=== PATIENT | male | born 1965 | race Caucasian/White ===

== ENCOUNTER 2017-07-24 13:02 | Emergency (ER) | payer SELFPAY ==
[2017-07-24 13:36] VITALS: BP 137/77
--- NOTE | 2017-07-24 14:25 | UC ---
Lower Extremity/Ankle HPI - HPI Summary HPI Summary: Pt reports slipping on ice and hitting left great toe and medial aspect of foot on curb. c/o pain and tenderness distal first meta tarsal and left big toe. - History of Current Complaint Chief Complaint: UCLowerExtremity Stated Complaint: WC - LEFT FOOT BIG TOE INJ Time Seen by Provider: 07/24/17 13:45 Hx Obtained From: Patient Onset/Duration: Sudden Onset Severity Initially: Moderate Severity Currently: Mild Pain Intensity: 8 Aggravating Factor(s): Standing, Ambulation Alleviating Factor(s): Rest, Elevation Able to Bear Weight: Yes - minimal Related History: Occupational Injury - Risk Factors Gout Risk Factors: Age Over 40, Male DVT Risk Factors: Smoking - Allergies/Home Medications Allergies/Adverse Reactions: Allergies Allergy/AdvReac Type Severity Reaction Status Date / Time No Known Allergies Allergy Verified 05/21/12 05:17 PMH/Surg Hx/FS Hx/Imm Hx Previously Healthy: Yes Cardiovascular History: Cardiac Disease - Surgical History Surgical History: Yes Surgery Procedure, Year, and Place: stents - Family History Known Family History: Positive: Cardiac Disease - Social History Occupation: Employed Full-time Lives: With Family Alcohol Use: Rare Substance Use Type: Excessive Caffeine Smoking Status (MU): Light Every Day Tobacco Smoker Type: Cigars, Smokeless Tobacco Have You Smoked in the Last Year: Yes - cigars Review of Systems Constitutional: Negative Skin: Bruising - left great toe Eyes: Negative ENT: Negative Respiratory: Negative Cardiovascular: Negative Gastrointestinal: Negative Genitourinary: Negative Motor: Decreased ROM - left great toe Neurovascular: Negative Musculoskeletal: Arthralgia, Decreased ROM - left great toe, Myalgia Neurological: Negative Psychological: Negative Is Patient Immunocompromised?: No All Other Systems Reviewed And Are Negative: Yes Physical Exam Triage Information Reviewed: Yes Appearance: Well-Appearing Vital Signs: Initial Vital Signs Temp 98.7 F 07/24/17 13:32 Pulse 65 07/24/17 13:32 Resp 18 07/24/17 13:32 BP 137/77 07/24/17 13:32 Pulse Ox 95 07/24/17 13:32 Vital Signs Reviewed: Yes Eye Exam: Normal ENT Exam: Normal Respiratory: Positive: No respiratory distress Musculoskeletal Exam: Other Musculoskeletal: Positive: Strength Limited @ - left great toe, ROM Limited @ - left great toe Neurological Exam: Normal Psychological Exam: Normal Skin Exam: Normal Diagnostics - Radiology No standard instances Radiology Interpretation Completed By: Radiologist - IMPRESSION: Negative radiographic exam of the LEFT foot. Lower Extremity Course/Dx - Differential Dx/Diagnosis Differential Diagnosis/HQI/PQRI: Contusion, Fracture (Closed) Provider Diagnoses: contusion left foot and great toe Discharge - Discharge Plan Condition: Stable Disposition: HOME Patient Education Materials: Foot Contusion (ED) Referrals: [facility] [place] [facility] [Outside] Panfilo Patel MD [Medical Doctor] - If Needed No Primary Care Phys,NOPCP [Primary Care Provider] -
--- NOTE | 2017-07-24 14:48 | RAD ---
Indication: Dorsal LEFT foot pain near the first metatarsal phalangeal joint. Comparison: No relevant prior exams available on the [facility] for comparison. Technique: AP, lateral, and oblique views LEFT foot. Report: Normal variant bipartite sesamoid at the medial head of the flexor hallucis brevis. Normal articular alignment and preserved joint spaces without significant arthropathic change. Negative for fracture or radiographic stigmata of stress reaction. Unremarkable soft tissue contours. IMPRESSION: Negative radiographic exam of the LEFT foot.
== END 2017-07-24 15:06 | disposition home or self-care (01) ==
LOC: UCCORT 13:02
DX: S90.32XA Contusion of left foot, initial encounter (principal); S90.112A Contusion of left great toe without damage to nail, initial encounter; W00.2XXA Other fall from one level to another due to ice and snow, initial encounter; Y93.9 Activity, unspecified; Y92.9 Unspecified place or not applicable; F17.210 Nicotine dependence, cigarettes, uncomplicated
CPT/HCPCS: 99202; G0463

== ENCOUNTER 2023-09-07 13:17 | Observation (INO) ==
[2023-09-07] MEDS: Heparin DRIP 25,000 UNITS BAG 25,000 UNITS/250 ML BAG IV SCH (14:00)
[2023-09-07 14:42] LABS: Activated Partial Thrombo Time 108.9 seconds (26.0-38.0)
[2023-09-07 15:13] LABS: Creatinine, Serum 0.74 mg/dL (0.67-1.17); eGFR CKD-EPI 104.4 (>60)
[2023-09-07 15:23] LABS: High Sensitivity Troponin 1 Hr 5 pg/mL (<20)
[2023-09-07 15:49] LABS: ABS Basophils 0.1 10^3/uL (0.0-0.1); ABS Eosinophils 0.2 10^3/uL (0.0-0.5); ABS Lymphocytes 3.3 10^3/uL (1.0-4.8); ABS Monocytes 0.8 10^3/uL (0.0-1.1); ABS Neutrophils 7.1 10^3/uL (1.5-7.6); ABS Nucleated RBC 0.03 10^3/ul; Eosinophil % 2.2 %; Hematocrit 45.3 % (38-53); Hemoglobin 15.1 g/dL (13.2-16.3); Lymphocyte % 28.4 %; Mean Corpuscular Hemoglobin 28.8 pg (27-33); Mean Corpuscular Hgb Conc 33.2 g/dL (31-36); Mean Corpuscular Volume 86.5 fL (80-97); Mean Platelet Volume 9.4 fL (7.5-11.2); Nucleated Red Blood Cells % 0.2 %/100WBC (0.0-0.8); Platelet Count 298 10^3/uL (150-450); Red Blood Count 5.24 10^6/uL (4.06-5.63); Red Cell Distribution Width 14.7 % (12-17); White Blood Count 11.5 10^3/uL (3.6-10.2)
[2023-09-07 17:19] LABS: Calcium 9.7 mg/dL (8.6-10.3); Potassium 4.3 mmol/L (3.5-5.0)
[2023-09-07] MEDS ORDERED: Morphine 2 MG/ML SYRINGE IV PRN (17:29)
[2023-09-07] MEDS: Heparin 5000 UNITS/ML 1 mL VIAL IV SCH (21:39)
[2023-09-07] MEDS: NS 0.9% 1000 ml BAG 1,000 ML IV SCH (23:38)
[2023-09-08 04:27] LABS: ABS Basophils 0.1 10^3/uL (0.0-0.1); ABS Eosinophils 0.2 10^3/uL (0.0-0.5); ABS Lymphocytes 2.6 10^3/uL (1.0-4.8); ABS Monocytes 0.6 10^3/uL (0.0-1.1); ABS Neutrophils 6.6 10^3/uL (1.5-7.6); ABS Nucleated RBC 0.01 10^3/ul; Eosinophil % 2.1 %; Hematocrit 44.6 % (38-53); Hemoglobin 15.2 g/dL (13.2-16.3); Lymphocyte % 25.3 %; Mean Corpuscular Hemoglobin 29.4 pg (27-33); Mean Corpuscular Volume 86.5 fL (80-97); Nucleated Red Blood Cells % 0.1 %/100WBC (0.0-0.8); Platelet Count 263 10^3/uL (150-450); Red Blood Count 5.16 10^6/uL (4.06-5.63); Red Cell Distribution Width 14.3 % (12-17); White Blood Count 10.1 10^3/uL (3.6-10.2)
[2023-09-08 09:27] LABS: Calcium 9.4 mg/dL (8.6-10.3); Creatinine, Serum 0.68 mg/dL (0.67-1.17); Potassium 4.3 mmol/L (3.5-5.0); eGFR CKD-EPI 107.1 (>60)
[2023-09-08] MEDS ORDERED: fentaNYL 100 mcg/2 ml 50 MCG/ML VIAL ONE ×3 (11:56→13:23)
[2023-09-08] MEDS ORDERED: Midazolam 5 mg/5 ml VIAL 1 mg/ml 5 ml VIAL (5 mg) ONE (11:57)
[2023-09-08] MEDS ORDERED: VERAPAMIL 2.5 MG/ML 2 ML VIAL ** 5 mg/2 ml ONE (12:29)
[2023-09-08] MEDS ORDERED: Lidocaine 1% MPF 5 ML VIAL ONE (12:30)
[2023-09-08] MEDS ORDERED: Heparin 2 UNITS/ML 1000 mls 2,000 ML IV ONE (12:30)
[2023-09-08] MEDS ORDERED: nitroGLYCERIN DRIP 25,000 MCG/250 ML BTL ONE (12:30)
[2023-09-08] MEDS ORDERED: Iohexol 350 (CONTRAST) 200 ML MDV IV ONE (12:30)
[2023-09-08] MEDS ORDERED: Heparin 1,000 UNIT/ML 10 ml (10,000 UNITS) CATHLAB/DIALYSIS ONE (12:30)
[2023-09-08] MEDS ORDERED: Bivalirudin 250 MG VIAL ONE (13:23)
[2023-09-08] MEDS ORDERED: Atropine 0.1 MG/ML 10 ml SYR (1 mg) ONE (14:08)
[2023-09-08] MEDS ORDERED: Eptifibatide IV (Load dose) 2 MG/ML 10 ml VIAL ONE ×2 (14:10→14:22)
[2023-09-08] MEDS ORDERED: Iohexol 350 (CONTRAST) 100 ML PAK IV ONE (14:15)
[2023-09-08] MEDS: fentaNYL 100 mcg/2 ml 50 MCG/ML VIAL IV SLOW PU ONE (15:30)
[2023-09-08] MEDS: Midazolam 10 mg/10 ml VIAL 1 mg/ml 10 ml VIAL (10 mg) IV SLOW PU ONE (15:31)
[2023-09-08] MEDS: NS 0.9% 1000 ml BAG 1,000 ML IV SCH (15:35)
[2023-09-08] MEDS ORDERED: Sulfur Hexaflouride MICROSPHR 25 MG VIAL ONE (15:57)
[2023-09-08] MEDS ORDERED: Atropine 0.1 MG/ML 10 ml SYR (1 mg) IV PUSH PRN (16:42)
[2023-09-09 04:39] LABS: ABS Basophils 0.1 10^3/uL (0.0-0.1); ABS Eosinophils 0.2 10^3/uL (0.0-0.5); ABS Lymphocytes 1.7 10^3/uL (1.0-4.8); ABS Monocytes 0.8 10^3/uL (0.0-1.1); ABS Neutrophils 8.5 10^3/uL (1.5-7.6); ABS Nucleated RBC 0.01 10^3/ul; Eosinophil % 1.6 %; Hematocrit 42.5 % (38-53); Hemoglobin 14.3 g/dL (13.2-16.3); Mean Corpuscular Hemoglobin 28.8 pg (27-33); Mean Corpuscular Hgb Conc 33.6 g/dL (31-36); Mean Corpuscular Volume 85.8 fL (80-97); Mean Platelet Volume 8.5 fL (7.5-11.2); Nucleated Red Blood Cells % 0.1 %/100WBC (0.0-0.8); Platelet Count 272 10^3/uL (150-450); Red Blood Count 4.96 10^6/uL (4.06-5.63); Red Cell Distribution Width 14.1 % (12-17); White Blood Count 11.2 10^3/uL (3.6-10.2)
[2023-09-09 05:28] LABS: Anion Gap 8 mmol/L (2-16); Blood Urea Nitrogen 19 mg/dL (6-24); CO2 Carbon Dioxide 21 mmol/L (22-32); Calcium 9.1 mg/dL (8.6-10.3); Chloride 108 mmol/L (101-111); Creatinine, Serum 0.66 mg/dL (0.67-1.17); Glucose 93 mg/dL (70-100); Sodium 137 mmol/L (135-145)
[2023-09-09 07:19] VITALS: BP 152/97
== END 2023-09-09 13:02 | disposition home or self-care (01) ==
LOC: EDHOLD 13:17 → ED 13:17 → MEDTELE 09-08 00:38 → ICU 09-08 15:28
PROVIDERS: ADMIT Internal Medicine; ATTEND Internal Medicine